=== PATIENT | female | born 1985 | race Asian ===

== ENCOUNTER → 2016-06-20 | Outpatient (CLI) | payer OTHER, MEDICARE | END | disposition home or self-care (01) | LOC: ECT 12:32 | DX: F33.2 Major depressive disorder, recurrent severe without psychotic features (principal); F90.9 Attention-deficit hyperactivity disorder, unspecified type; F43.10 Post-traumatic stress disorder, unspecified; E05.00 Thyrotoxicosis with diffuse goiter without thyrotoxic crisis or storm; E23.2 Diabetes insipidus ==

== ENCOUNTER 2016-07-19 07:48 | Outpatient (RCR) | payer OTHER, MEDICARE ==
[~2016-07-19] VITALS: Ht 154.9 cm; Wt 51.8 kg
[2016-07-19] MEDS ORDERED: Midazolam 2mg/2ml Inj ONE (07:49)
[2016-07-19] MEDS ORDERED: Methohexital Sodium Syr 100mg/10ml IVP ONE (07:49)
[2016-07-19] MEDS ORDERED: NS 550ML IV ONE (07:49)
[2016-07-19] MEDS ORDERED: Ketorolac 60mg Inj ONE (07:49)
[2016-07-19] MEDS ORDERED: Succinylcholine 20mg/ml 10ml vial ONE (07:49)
[2016-07-19] MEDS ORDERED: Midazolam 2mg/2ml Inj IVP PRN (12:30)
[2016-07-19] MEDS ORDERED: Ketorolac 30mg Inj IV ONE (12:30)
[2016-07-20] MEDS ORDERED: Ketorolac 30mg Inj IV ONE (15:00)
[2016-07-22] MEDS ORDERED: Atropine Sulfate 0.4mg/ml inj IVP PRN (12:30)
[2016-07-22] MEDS ORDERED: Midazolam 2mg/2ml Inj ONE (12:30)
[2016-07-22] MEDS ORDERED: Ketorolac 30mg Inj ONE (12:30)
[2016-07-22] MEDS ORDERED: NS 550ML IV ONE (12:30)
[2016-07-22] MEDS ORDERED: Succinylcholine 20mg/ml 10ml vial ONE (12:30)
[2016-07-22] MEDS ORDERED: Methohexital Sodium Syr 100mg/10ml IVP ONE (12:30)
[2016-07-26] MEDS ORDERED: Succinylcholine 20mg/ml 10ml vial ONE (12:30)
[2016-07-26] MEDS ORDERED: Midazolam 2mg/2ml Inj ONE (12:30)
[2016-07-26] MEDS ORDERED: Methohexital Sodium Syr 100mg/10ml IVP ONE (12:30)
[2016-07-26] MEDS ORDERED: NS 550ML IV ONE (12:30)
[2016-07-26] MEDS ORDERED: Ketorolac 30mg Inj ONE (12:30)
[2016-07-29] MEDS ORDERED: Succinylcholine 20mg/ml 10ml vial ONE (07:49)
[2016-07-29] MEDS ORDERED: Ketorolac 60mg Inj ONE (07:49)
[2016-07-29] MEDS ORDERED: Methohexital Sodium Syr 100mg/10ml IVP ONE (07:49)
[2016-07-29] MEDS ORDERED: Midazolam 2mg/2ml Inj ONE (07:49)
[2016-07-29] MEDS ORDERED: NS 550ML IV ONE (07:49)
[2016-07-31] MEDS ORDERED: NS 550ML IV ONE (07:49)
[2016-07-31] MEDS ORDERED: Succinylcholine 20mg/ml 10ml vial ONE (07:49)
[2016-07-31] MEDS ORDERED: Midazolam 2mg/2ml Inj ONE (07:49)
[2016-07-31] MEDS ORDERED: Methohexital Sodium Syr 100mg/10ml IVP ONE (07:49)
[2016-07-31] MEDS ORDERED: Ketorolac 60mg Inj ONE (07:49)
[2016-08-02] MEDS ORDERED: Midazolam 2mg/2ml Inj ONE (22:31)
[2016-08-02] MEDS ORDERED: Ketorolac 30mg Inj ONE (22:31)
[2016-08-02] MEDS ORDERED: Methohexital Sodium Syr 100mg/10ml IVP ONE (22:31)
[2016-08-02] MEDS ORDERED: Succinylcholine 20mg/ml 10ml vial ONE (22:31)
[2016-08-02] MEDS ORDERED: NS 550ML IV ONE (22:31)
[2016-08-02] MEDS ORDERED: Excedrin Migraine tab ONE (22:31)
[2016-08-02] MEDS ORDERED: Excedrin Migraine tab ORAL PRN (22:45)
[2016-08-05] MEDS ORDERED: Excedrin Migraine tab ORAL PRN (06:00)
[2016-08-05] MEDS ORDERED: NS 550ML IV ONE (12:00)
[2016-08-05] MEDS ORDERED: Ketorolac 30mg Inj ONE (12:00)
[2016-08-05] MEDS ORDERED: Excedrin Migraine tab ONE (12:00)
[2016-08-05] MEDS ORDERED: Succinylcholine 20mg/ml 10ml vial ONE (12:00)
[2016-08-05] MEDS ORDERED: Methohexital Sodium Syr 100mg/10ml IVP ONE (12:00)
[2016-08-05] MEDS ORDERED: Midazolam 2mg/2ml Inj ONE (12:00)
== END 2016-08-06 | disposition home or self-care (01) ==
LOC: ECT 07:48
DX: F33.2 Major depressive disorder, recurrent severe without psychotic features (principal)
CPT/HCPCS: 90870; J2250

== ENCOUNTER 2016-08-07 11:12 | Outpatient (RCR) | payer OTHER, MEDICARE ==
[~2016-08-07] VITALS: Ht 154.9 cm; Wt 51.8 kg
[~2016-08-07 11:12] MED LIST: Excedrin Migraine tab ORAL PRN
[2016-08-07] MEDS ORDERED: Excedrin Migraine tab ONE ×2 (11:13)
[2016-08-07] MEDS ORDERED: Ketorolac 60mg Inj ONE (11:13)
[2016-08-07] MEDS ORDERED: Methohexital Sodium Syr 100mg/10ml IVP ONE ×2 (11:13)
[2016-08-07] MEDS ORDERED: NS 550ML IV ONE ×2 (11:13)
[2016-08-07] MEDS ORDERED: Ketorolac 30mg Inj ONE (11:13)
[2016-08-07] MEDS ORDERED: Succinylcholine 20mg/ml 10ml vial ONE ×2 (11:13)
[2016-08-07] MEDS ORDERED: Midazolam 2mg/2ml Inj ONE ×2 (11:13)
[2016-08-12] MEDS ORDERED: Atropine Sulfate 0.4mg/ml inj IVP PRN (10:43)
[2016-08-12] MEDS ORDERED: Excedrin Migraine tab ORAL PRN (10:43)
[2016-08-23] MEDS ORDERED: Excedrin Migraine tab ORAL PRN (09:42)
[2016-09-04] MEDS ORDERED: Ketorolac 60mg Inj ONE (09:00)
[2016-09-04] MEDS ORDERED: Excedrin Migraine tab ONE (09:00)
[2016-09-04] MEDS ORDERED: Methohexital Sodium Syr 100mg/10ml IVP ONE (09:00)
[2016-09-04] MEDS ORDERED: Midazolam 2mg/2ml Inj ONE (09:00)
[2016-09-04] MEDS ORDERED: Succinylcholine 20mg/ml 10ml vial ONE (09:00)
[2016-09-04] MEDS ORDERED: NS 550ML IV ONE (09:00)
== END 2016-09-06 | disposition home or self-care (01) ==
LOC: ECT 11:12
DX: F33.2 Major depressive disorder, recurrent severe without psychotic features (principal)
CPT/HCPCS: 90870; J2250

== ENCOUNTER 2016-09-13 06:26 | Outpatient (RCR) | payer OTHER, MEDICARE ==
[~2016-09-13] VITALS: Ht 30.5 cm; Wt 0.5 kg
[2016-09-13] MEDS ORDERED: Methohexital Sodium 500mg Vial IVP ONE (06:27)
[2016-09-13] MEDS ORDERED: Excedrin Migraine tab ONE (06:27)
[2016-09-13] MEDS ORDERED: NS 550ML IV ONE ×2 (06:27)
[2016-09-13] MEDS ORDERED: Ketorolac 30mg Inj ONE (06:27)
[2016-09-13] MEDS ORDERED: Succinylcholine 20mg/ml 10ml vial ONE ×2 (06:27)
[2016-09-13] MEDS ORDERED: Excedrin tab (non formulary) ONE (06:27)
[2016-09-13] MEDS ORDERED: Ketorolac 60mg Inj ONE (06:27)
[2016-09-13] MEDS ORDERED: Midazolam 2mg/2ml Inj ONE ×2 (06:27)
[2016-09-13] MEDS ORDERED: Methohexital Sodium Syr 100mg/10ml IVP ONE (06:27)
[2016-09-13] MEDS ORDERED: Excedrin Migraine tab ORAL PRN (08:59)
[2016-09-30] MEDS ORDERED: Methohexital Sodium Syr 100mg/10ml IVP ONE (06:00)
[2016-09-30] MEDS ORDERED: Atropine Sulfate 0.4mg/ml inj IVP PRN (11:33)
[2016-09-30] MEDS ORDERED: Excedrin Migraine tab ORAL PRN (11:33)
== END 2016-10-06 | disposition home or self-care (01) ==
LOC: ECT 06:26
DX: F33.2 Major depressive disorder, recurrent severe without psychotic features (principal)
CPT/HCPCS: 90870; J2250; J3490

== ENCOUNTER 2016-10-21 06:35 | Outpatient (RCR) | payer OTHER, MEDICARE | END 2016-11-06 | disposition home or self-care (01) | LOC: ECT 06:35 | DX: F33.2 Major depressive disorder, recurrent severe without psychotic features (principal) ==